=== PATIENT | female | born 1945 | race Caucasian/White ===

== ENCOUNTER 2018-05-09 09:23 | Day surgery (SDC) | payer BC, MEDICARE, OTHER ==
[~2018-05-09 09:23] MED LIST: LIDOCAINE HCL 1% MPF 30 SOL ONE; PROPOFOL 500 MG/50 ML EMU IV ONE
[2018-05-09 11:05] VITALS: TEMP 97.9
[2018-05-09 11:30] VITALS: BP 154/77; PULSE 56; RESP 16; O2SAT 99
== END 2018-05-09 11:55 | disposition home or self-care (01) | DRG 951 ==
LOC: SURG 09:23
PROVIDERS: ATTEND Surgery
DX: Z12.11 Encounter for screening for malignant neoplasm of colon (principal); K57.32 Diverticulitis of large intestine without perforation or abscess without bleeding; D12.5 Benign neoplasm of sigmoid colon; D12.3 Benign neoplasm of transverse colon
CPT/HCPCS: J2001; J2704